=== PATIENT | male | born 1985 | race Caucasian/White ===

== ENCOUNTER 2016-12-05 14:34 | Emergency (ER) | payer OTHER, BC ==
[~2016-12-05] VITALS: Ht 177.8 cm; Wt 100.0 kg
[2016-12-05] MEDS ORDERED: KETOROLAC 60 MG/2 ML VIAL (J1885) IM ONE (16:45)
[2016-12-05] MEDS ORDERED: IBUP-1022 PO (17:01)
[2016-12-05] MEDS ORDERED: CYCL10TA PO (17:01)
[2016-12-05 17:47] VITALS: BP 148/89
== END 2016-12-05 17:49 | disposition home or self-care (01) ==
LOC: M ED 14:34
DX: S39.012A Strain of muscle, fascia and tendon of lower back, initial encounter (principal); X50.9XXA Other and unspecified overexertion or strenuous movements or postures, initial encounter; Y92.59 Other trade areas as the place of occurrence of the external cause; Y93.89 Activity, other specified; Y99.0 Civilian activity done for income or pay; F17.210 Nicotine dependence, cigarettes, uncomplicated
CPT/HCPCS: 96372; 99282; J1885

== ENCOUNTER 2017-04-27 11:09 | Emergency (ER) | payer BC, OTHER ==
[2017-04-27] MEDS: KETOROLAC 30 MG/ML VIAL (J1885) IV (13:01)
[2017-04-27] MEDS: MORPHINE 4 MG/ML 1ML VIAL IV (13:02)
[2017-04-27] MEDS: GASTROGRAFIN SOLUTION 30ML PO ×2 (13:17→13:36)
[2017-04-27 13:20] LABS: BASO # 0.1 10^3/uL (0.0-0.2); BASO % 0.4 % (0.0-1.0); EOS # 0.1 10^3/uL (0.0-0.50); EOS % 0.6 % (0.0-3.0); HEMATOCRIT 42.5 % (42.0-52.0); HEMOGLOBIN 14.9 g/dl (14.0-18.0); IMMATURE GRANULOCYTE % 0.3 % (0-0); LYMPH # 1.3 10^3/uL (1.5-4.5); LYMPH % 8.9 % (24.0-44.0); MEAN CORPUSCULAR HEMOGLOBIN 33.6 pg (27.0-33.0); MEAN CORPUSCULAR HGB CONC 35.1 g/dl (32.0-36.5); MEAN CORPUSCULAR VOLUME 95.7 fl (80.0-96.0); MONO # 0.7 10^3/uL (0.0-0.8); MONO % 4.8 % (0.0-5.0); NEUTROPHILS # 12.1 10^3/uL (1.8-7.7); PLATELET COUNT, AUTOMATED 173 10^3/uL (150-450); RED BLOOD COUNT 4.44 10^6/uL (4.30-6.10); RED CELL DISTRIBUTION WIDTH 11.7 % (11.5-14.5); WHITE BLOOD COUNT 14.2 10^3/uL (4.0-10.0)
[2017-04-27 13:25] LABS: APPEARANCE, URINE HAZY (CLEAR); BACTERIA, URINE AUTO NEGATIVE (NEGATIVE); BILIRUBIN, URINE AUTO NEGATIVE (NEGATIVE); BLOOD, URINE BLOOD NEGATIVE (NEGATIVE); COLOR, URINE YELLOW (YELLOW); GLUCOSE, URINE (UA) AUTO NEGATIVE (NEGATIVE); KETONE, URINE AUTO NEGATIVE (NEGATIVE); LEUKOCYTE ESTERASE, URINE AUTO NEGATIVE (NEGATIVE); MUCUS, URINE SMALL (NEGATIVE); NITRITE, URINE AUTO NEGATIVE (NEGATIVE); PROTEIN, URINE AUTO NEGATIVE (NEGATIVE); RBC, URINE AUTO 5 /HPF (0-3); SPECIFIC GRAVITY URINE AUTO 1.023 (1.002-1.035); SQUAMOUS EPITHELIAL CELL UR AU 0 /HPF (0-6); UROBILINOGEN, URINE AUTO 0.2 mg/dL (0.0-2.0); WBC, URINE AUTO 1 /HPF (0-3)
[2017-04-27 13:43] LABS: ALBUMIN 4.2 GM/DL (3.2-5.2); ALKALINE PHOSPHATASE 68 U/L (45-117); ALT/SGPT 40 U/L (12-78); AMYLASE 51 U/L (25-115); ANION GAP 9 MEQ/L (8-16); AST/SGOT 25 U/L (7-37); BILIRUBIN,TOTAL 0.4 MG/DL (0.2-1.0); BLOOD UREA NITROGEN 21 MG/DL (7-18); C REACTIVE PROTEIN QUANTITATIV < 0.30 MG/DL (0.00-0.30); CALCIUM LEVEL 8.9 MG/DL (8.5-10.1); CARBON DIOXIDE LEVEL 26 MEQ/L (21-32); CHLORIDE LEVEL 104 MEQ/L (98-107); GLOMERULAR FILTRATION RATE > 60.0 (>60); GLUCOSE, FASTING 101 MG/DL (70-100); LIPASE 102 U/L (73-393); SODIUM LEVEL 139 MEQ/L (136-145); TOTAL PROTEIN 7.2 GM/DL (6.4-8.2)
[2017-04-27 13:46] LABS: LACTIC ACID SEPSIS PROTOCOL 1.1 MMOL/L (0.4-2.0)
[2017-04-27] MEDS: HYDROmorphone HCL 1 MG/ML SYRINGE (J1170) IV (13:56)
[2017-04-27] MEDS ORDERED: ISOVUE-370 76% 100ML VIAL (Q9967) As Ordered (14:13)
== END 2017-04-27 15:12 | disposition home or self-care (01) ==
LOC: M ED 11:09
DX: K81.0 Acute cholecystitis (principal); Z87.442 Personal history of urinary calculi; K25.9 Gastric ulcer, unspecified as acute or chronic, without hemorrhage or perforation; F17.200 Nicotine dependence, unspecified, uncomplicated
CPT/HCPCS: J1170

== ENCOUNTER 2017-06-09 06:38 | Day surgery (SDC) | payer BC ==
[2017-06-09] MEDS ORDERED: PROPOFOL 200 MG/20 ML VIAL As Ordered (06:41)
[2017-06-09] MEDS ORDERED: dexameTHASONE 4 MG/ML 1ML VIAL (J1100) As Ordered (06:42)
[2017-06-09] MEDS ORDERED: ONDANSETRON 4MG/2ML VIAL (J2405) As Ordered (06:42)
[2017-06-09] MEDS ORDERED: ROCURONIUM BROMIDE 50 MG/5 ML VIAL As Ordered (06:42)
[2017-06-09] MEDS ORDERED: NEOSTIGMINE 10 MG/10 ML VIAL (J2710) As Ordered (06:44)
[2017-06-09] MEDS ORDERED: GLYCOPYRROLATE INJ 0.2 MG/ML 2 ML VIAL As Ordered (06:45)
[2017-06-09] MEDS: LR 1,000 ML IV (07:01)
[2017-06-09] MEDS ORDERED: fentaNYL 250 MCG/5 ML INJECTION (J3010) As Ordered (07:01)
[2017-06-09] MEDS ORDERED: MIDAZOLAM INJ 2 MG/2 ML VIAL (J2250) As Ordered (07:03)
[2017-06-09] MEDS: AMPICILLIN SOD/SULBACTAM SOD 3 GM in D5W MINI-BAG PLUS 100 ML IV (07:31)
[2017-06-09] MEDS: BUPIVACAINE HCL 0.25% 30 ML VIAL As Ordered (08:51)
[2017-06-09] MEDS: LIDOCAINE 1% SDV INJ 30 ML VIAL As Ordered (08:51)
[2017-06-09] MEDS ORDERED: MEPERIDINE INJ 25 MG/ML VIAL (J2175) As Ordered (09:11)
[2017-06-09] MEDS: MEPERIDINE INJ 25 MG/ML VIAL (J2175) IV ×2 (09:14→09:20)
[2017-06-09] MEDS ORDERED: METOCLOPRAMIDE INJ 10MG/2ML VIAL (J2765) IV (09:30)
[2017-06-09] MEDS ORDERED: LR 1,000 ML IV (09:30)
[2017-06-09] MEDS ORDERED: ONDANSETRON 4MG/2ML VIAL (J2405) IV ×2 (09:30)
[2017-06-09] MEDS ORDERED: KETOROLAC 30 MG/ML VIAL (J1885) IV (09:30)
[2017-06-09] MEDS ORDERED: fentaNYL 100 MCG/2 ML INJECTION (J3010) IV (09:30)
[2017-06-09] MEDS ORDERED: NORCO, ANEXSIA 5/325MG TABLET (HYDROcodone/ACETAMINOPHEN) PO ×2 (09:30)
[2017-06-09] MEDS: PERCOCET 5MG/325MG TAB PO ×2 (09:32→09:58)
== END 2017-06-09 11:06 | disposition home or self-care (01) ==
LOC: M SDC 06:38
DX: K80.18 Calculus of gallbladder with other cholecystitis without obstruction (principal); I49.8 Other specified cardiac arrhythmias; K21.9 Gastro-esophageal reflux disease without esophagitis; F32.9 Major depressive disorder, single episode, unspecified; F17.210 Nicotine dependence, cigarettes, uncomplicated; Z79.899 Other long term (current) drug therapy
CPT/HCPCS: 47562

== ENCOUNTER → 2018-06-12 | Outpatient (REF) | payer BC ==
[~2018-06-12] MED LIST: CYCL10TA PO; HYDR-3713; IBUP-1022 PO; NORCOTAB PO; ZOFR4TAB14 PO
== END ==
LOC: M LAB REF 11:23
PROVIDERS: ATTEND Physician Assistant
DX: J02.9 Acute pharyngitis, unspecified (principal)

== ENCOUNTER 2019-02-12 12:42 | Emergency (ER) | payer BC ==
[~2019-02-12] VITALS: Ht 177.8 cm; Wt 100.0 kg
[~2019-02-12 12:42] MED LIST changes: +HYDR-3715 PO; -NORCOTAB PO
[2019-02-12] MEDS ORDERED: FLUORESCEIN OPHTH 1 MG STRIP OD ONE (14:30)
[2019-02-12] MEDS ORDERED: TETRACAINE 0.5% OPHTH SOLN 4ML OD ONE (14:30)
[2019-02-12] MEDS ORDERED: IBUPROFEN 800 MG TAB PO ONE (15:00)
[2019-02-12] MEDS ORDERED: ERYTHROMYCIN OPHTH OINT OD ONE (15:00)
[2019-02-12 15:07] VITALS: BP 143/91
== END 2019-02-12 15:08 | disposition home or self-care (01) ==
LOC: M ED 12:42
DX: T15.01XA Foreign body in cornea, right eye, initial encounter (principal)

== ENCOUNTER → 2019-04-12 | Outpatient (CLI) | payer BC ==
--- NOTE | 2019-04-16 00:09 | ECWPNPC ---
PATIENT NAME: KIRK WILSON : 1985 GENDER: MALE VISIT DATE: 04/12/2019 DISCHARGE DATE: 04/12/19 1134 VISIT LOCKED DATE TIME: PHYSICIAN: LIVIA MORAN RESOURCE: LIVIA MORAN REASON FOR APPOINTMENT 1. LUMBAR BULGING DISC/?INJECTION HISTORY OF PRESENT ILLNESS PAIN SCREENING: PATIENT HAS A COMPLAINT OF ACUTE OR CHRONIC PAIN :YES 33-YEAR-OLD MALE WITH A HISTORY OF CHRONIC NECK AND BACK PAIN IN TODAY FOR INITIAL PAIN CONSULT. HE RATES PAIN CURRENTLY AT AN 8 OUT OF 10 AND DESCRIBES IT ACHING, SHARP, BURNING, STABBING, SORE, SHOOTING, AND TENDER. HE ADMITS TO BEING ON NSAIDS AND MUSCLE RELAXERS IN THE PAST AND STATES THESE ARE INEFFECTIVE IN RELIEVING HIS PAIN SYMPTOMS. HE DOES ADMIT TO LUMBAR AND CERVICAL RADICULAR SYMPTOMS. WHEN ASKED SHE DENIES HISTORY OF TRAUMA. FALL RISK SCREENING: SCREENING :NO FALLS REPORTED IN THE LAST YEAR CURRENT MEDICATIONS NOT-TAKING PERCOCET 5-325 MG TABLET 1 TABLET NEEDED ORALLY EVERY 4-6 HOURS NOT-TAKING CLINDAMYCIN HCL 75 MG CAPSULE DIRECTED ORALLY NOT-TAKING FLEXERIL 10 MG TABLET 1 TABLET ORALLY THREE TIMES A DAY NOT-TAKING NAPROXEN 500 MG TABLET 1 TABLET WITH FOOD OR MILK NEEDED ORALLY EVERY 12 HRS NOT-TAKING NABUMETONE 750 MG TABLET 1 TABLET ORALLY TWICE A DAY MEDICATION LIST REVIEWED AND RECONCILED WITH THE PATIENT PAST MEDICAL HISTORY KIDNEY STONE BACK PAIN ALLERGIES N.K.D.A. SURGICAL HISTORY SURGICAL REPAIR OF FOOT FX 1999 [facility]- DR. RUGGIERO- GALLBLADDER REMOVED 06/09/17 FAMILY HISTORY FATHER: UNKNOWN 60 YRS MOTHER: ALIVE 65 YRS, MS, BREAST CANCER SIBLINGS: ALIVE SON(S): ALIVE 9 YRS DAUGHTER(S): ALIVE 8 YRS PATERNAL GRAND FATHER: UNKNOWN PATERNAL GRAND MOTHER: UNKNOWN MATERNAL GRAND FATHER: 70 YRS, DIAGNOSED WITH OTHER MALIGNANT NEOPLASM OF UNSPECIFIED SITE MATERNAL GRAND MOTHER: 90 YRS, OTHER MALIGNANT NEOPLASM OF UNSPECIFIED SITE 1 BROTHER(S) , 3 SISTER(S) . 1 SON(S) , 1 DAUGHTER(S) - HEALTHY. ALL HALF [id number] - 1 SISTER AGE 30 WITH RECURRENT ? CERVICAL CANCER. HYSTERECTOMY1 SISITER HEART DEFECT AT , RESLOVED WITH SX.3BROTHERS- NO KNOWN MEDICAL ISSUESFATHER- ALIVE, AGE 60,UNKOWN HX- BI-KNEE REPLACEMENTS, CT SX BOTH WRIST, OBESITY. MOTHER- ALIVE AGE 65- MS, BREAST CANCER X2. PANCREAS, GALL BLADDER REMOVED. 1 SON AGE 9- NO KNOWN MEDICAL ISSUES- (LIVES WITH SELF-FATHER)1 DAUGHTER AGE8- MULTIPLE MEDICAL ISSUES, INTESTINAL AND BOWELS ISSUES- INCONT OF BLADDER AND BOWELS, LIVES WITH MOTHER. TUBES IN EARS. PATERNAL GRANDPARENTS- UNKNOWN FATHER WAS ADOPTEDMATERNAL GRANDPARENTS- GRANDFATHER AGE 70- DECEASEAD- LUNG CANCERMATERNAL GRANDMOTHER AGE 90- - PANCREATIC CANCER. SOCIAL HISTORY GENERAL: TOBACCO USE ARE YOU A:CURRENT SMOKER ARE YOU INTERESTED IN QUITTING?THINKING ABOUT QUITTING PREVIOUS QUIT ATTEMPTS?YES, MORE THAN 6 MONTHS AGO. COUNSELED THE PATIENT ON SMOKING CESSATION, EDUCATION [id number]/28/2019 HOW MANY CIGARETTES A DAY DO YOU SMOKE?11-20 HOW SOON AFTER YOU WAKE UP DO YOU SMOKE YOUR FIRST CIGARETTE?31-60 MIN HOW OFTEN DO YOU SMOKE CIGARETTES?EVERY DAY PATIENT COUNSELED ON THE DANGERS OF TOBACCO USE AND URGED TO QUIT:04/12/2019 HIV / HEP-C SCREENING HIV TEST OFFERED TO PATIENT:YES DATE OFFERED:06/15/2017 TEST ACCEPTED:NO REASON:PATIENT DECLINED BROCHURE PROVIDED TO PATIENTYES OTHERS AT HOME: GIRLFRIEND, HIS SON,. HOUSING: RENTS HOUSE. EDUCATION LEVEL OF EDUCATION: COMPLETED 9TH GRADE DIET: REGULAR. LANGUAGE TAJIK. DOMESTIC VIOLENCE NONE. NEW PATIENT PAIN DIARY PATIENT DESCRIBES PAIN :ACHING, BURNING, HAVE IT ALL THE TIME, SHARP, STABBING, SORE, SHOOTING FROM 0-10, WHAT LEVEL IS YOUR PAIN TODAY?8 PRECIPITATING FACTORS STANDING, SITTING, BENDING MOVEMENTS, PROLONGED PERIOD ON FEET ALLEVIATING FACTORS NOTHING AT THIS TIME, MEDICATIONS WILL DULL PAIN, NOTHING RESOLVES PAIN IMPACT ON FUNCTION DOES NOT DAMPER DAILY ACTIVITY, PT CONTINUES TO TOLERATE INCREASED PAIN ANY NEW PROBLEMS WITH MEDICINES OR NEW ALLERGIESNO ANY NEW PATTERNS OF PAIN OR NUMBNESS?NO MOVES ACROSS BACK, UP OR DOWN, RADIATES DOWN LEGS AT TIMES ANY CHANGE IN YOUR MEDICAL CONDITION?NO HAVE YOU FALLEN IN THE LAST 6 MONTHS?NO DO YOU USE ANY TYPE OF TOBACCO (SMOKE, SMOKELESS, CHEW, ETC.)YES ARE YOU ABUSED, NEGLECTED, OR IN AN UNSAFE ENVIRONMENT?NO DO YOU HAVE THOUGHTS OF HURTING YOURSELF OR SOMEONE ELSE?NO DO YOU HAVE ANY OTHER QUESTIONS OR CONCERNS?NO RECREATIONAL DRUG USE [facility]. EXERCISE: NO REGULAR EXERCISE. LEARNING BARRIERS / SPECIAL NEEDS HEARING IMPAIRED?NO VISION IMPAIRED?NO COGNITIVELY IMPAIRED?NO READINESS TO LEARN?YES LEARNING PREFERENCES?NO LEARNING CAPABILITIES PRESENT?YES PAIN CLINIC PFS, CLERGY, PUBLIC HEALTH REFERRALS WAS THE PROVIDER NOTIFIED OF ANY PERTINENT INFO?YES HAS THE PATIENT BEEN EDUCATED REGARDING HIS/HER PLAN OF CARE?YES HAS THE PATIENT BEEN EDUCATED REGARDING PAIN, THE RISK FOR PAIN, THE IMPORTANCE OF EFFECTIVE PAIN MANAGEMENT, AND THE PAIN ASSESSMENT PROCESS?YES LATEX QUESTIONNAIRE LATEX ALLERGY : HAVE YOU EVER DEVELOPED ANY TYPE OF REACTION AFTER HANDLING LATEX PRODUCTS SUCH RUBBER GLOVES, CONDOMS, DIAPHRAGMS, BALLOONS, SOCKS, OR UNDERWEAR?NO LATEX ALLERGY : HAVE YOU EVER DEVELOPED ANY TYPE OF REACTION DURING OR AFTER DENTAL APPOINTMENT, VAGINAL/RECTAL EXAMINATION, SURGICAL PROCEDURE, OR ANY OTHER EXPOSURE?NO DATE ASKED : 06/07/2018 LATEX RISK : HAVE YOU EVER HAD ANY DIFFICULTY BREATHING OR HIVES AFTER EATING OR HANDLING ANY FRUITS, OR VEGETABLES; SUCH KIWI, BANANAS, STONE FRUITS, OR CHESTNUTSNO LATEX RISK : DO YOU HAVE A PREVIOUS PERSONAL HISTORY OF MORE THAN NINE SURGERIES, SPINA BIFIDA, OR REPEATED CATHERIZATIONS? NO LATEX RISK : ARE YOU FREQUENTLY EXPOSED TO LATEX PRODUCTS IN YOUR OCCUPATION?NO CAFFEINE CAFFEINE USE?YES 2-3 ENERGY DRINKS DAILY, 1-2 COFFEE DAILY, 2LITER SODA NIGHTLY ADVANCE DIRECTIVE ADVANCE DIRECTIVE DISCUSSED WITH PATIENT:YES PT STATES THAT HE DOES NOT HAVE HCP AT THIS TIME AND DECLINES ASSISTANCE WITH PAPERWORK. DS SIKH NO DENOMINATIONAL BELIEFS THAT WOULD IMPACT HEALTH CARE. MARITAL STATUS: SINGLE. 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 SEXUAL HX HAD SEX IN THE LAST 12 MONTHS (VAGINAL, ORAL, OR ANAL)?YES WITHWOMEN ONLY PREVENTION STRATEGIES DISCUSSED:OTHER USE PROTECTION?NO HAVE YOU EVER HAD AN STD?NO 2019-04-12 REVIEWED WITH PATIENT DS. HOSPITALIZATION/MAJOR DIAGNOSTIC PROCEDURE [facility] IN [place]- KIDNEY FAILURE 2011- 1WEEK REVIEW OF SYSTEMS REVIEWED BY: PROVIDER: RIGOBERTO LOCKE-C . CONSTITUTIONAL: ANY CHANGE IN YOUR MEDICAL CONDITION? NO . CHILLS NO . FEVER NO . INFECTION: DO YOU HAVE NEW INFECTIONS? NO . DO YOU HAVE HISTORY OF MRSA? NO . MUSCULOSKELETAL: ANY NEW PATTERNS OF PAIN OR NUMBNESS? NO . SYTEMIC LUPUS NO . GASTROENTEROLOGY: ANY NEW CHANGE IN BOWEL CONTROL? NO . BARRETTS ESOPHAGUS NO . CIRRHOSIS NO . HEPATITIS NO . LIVER FAILURE NO . ACID REFLUX NO . UNEXPLAINED WEIGHT LOSS NO . GENITOURINARY: ANY NEW CHANGE IN BLADDER CONTROL? NO . IS THERE A CHANCE YOU COULD BE ? NO . HEMATOLOGY/LYMPH: DO YOU TAKE ANY BLOOD THINNERS? (FOR EXAMPLE- COUMADIN, PLAVIX, AGGRENOX, PLATEL, PRADAXA, OR XARELTO) NO . WHEN WAS YOUR LAST DOSE? DATE: TIME: . LOW PLATELET COUNT NO . SICKLE CELL DISEASE NO . VON WILLIEBRANDS NO . FACTOR V LEIDEN NO . THALLASEMIA NO . ANEMIA NO . EASY BRUISING NO . NEUROLOGY: HAVE YOU FALLEN IN THE PAST 12 MONTHS? NO . ANY NEW EXTREMITY NUMBNESS OR WEAKNESS? NO . HEAD INJURY NO . DEMENTIA NO . CEREBRAL PALSY NO . MULTIPLE SCLEROSIS NO . DIZZINESS NO . HEADACHE NO . STROKES NO . VERTIGO NO . CARDIOLOGY: DO YOU HAVE A PACEMAKER OR DEFIBRILLATOR? NO . ANGINA NO . HEART ATTACK NO . HEART SURGERY NO . CONGESTIVE HEART FAILURE/FLUID OVERLOAD NO . CHEST PAIN NO . HIGH BLOOD PRESSURE NO . IRREGULAR HEART BEAT NO . RESPIRATORY: HAVE YOU BEEN SICK IN THE PAST WEEK? NO . FEVER NO . FLU LIKE SYMPTOMS? NO . CPAP NO . BYPAP NO . ASTHMA NO . EMPHYSEMA NO . CHRONIC LUNG DISEASES NO . SHORTNESS OF BREATH ON EXERTION NO . COUGH NO . SNORING NO . INTEGUMENTARY: DO YOU HAVE ANY RASHES OR OPEN SORES? YES, CYST ON TAILBONE, BEEN THERE FOR YEARS . ALLERGIC/IMMUNO: ARE YOU ALLERGIC TO IV DYE? NO . ANY NEW ALLERGIES? NO . PSYCHIATRIC: DO YOU HAVE THOUGHTS OF HURTING YOURSELF OR SOMEONE ELSE? NO . ARE YOU ABUSED, NEGLECTED, OR IN AN UNSAFE ENVIRONMENT? NO . ENDOCRINOLOGY: ARE YOU DIABETIC? NO . THYROID DISORDER NO . OTHER: DO YOU NEED ANY PRESCRIPTIONS? NO . IF YES, PLEASE LIST: ____ . ANY NEW PROBLEMS WITH YOUR MEDICATIONS? NO . WHEN DID YOU LAST EAT? ____ . WHEN DID YOU LAST DRINK? ____ . WHAT DID YOU LAST DRINK? ____ . NAME OF PERSON DRIVING YOU HOME? ____ . DO YOU HAVE ANY OTHER QUESTIONS OR CONCERNS NO . VITAL SIGNS WT 244.2 LBS, HT 71 IN, BMI 34.06 INDEX, BP 142/93 MM HG, HR 68 /MIN, RR 18 /MIN, TEMP 97.5 F, OXYGEN SAT % 98, SAFE IN ENV? (Y/N) Y, REVIEWED BY: DS. EXAMINATION GENERAL EXAMINATION: GENERALNO ACUTE DISTRESS, WELL NOURISHED AND HYDRATED. PSYCHAPPROPRIATE MOOD AND AFFECT . NECK:POINT TENDER C5-C6, SURROUNDING SKIN SHOWS NO ERYTHEMA, ECCHYMOSIS, INCREASED WARMTH, AND/OR SKIN ERUPTIONS NOTED. PATIENT DOES ENDORSE INCREASED PAIN WHEN ASKED TO LIFT ARMS AGAINST RESISTANCE. . LUNGS:CLEAR TO AUSCULTATION BILATERALLY, NO WHEEZES, RHONCHI, RALES. HEART:NO MURMURS, REGULAR RATE AND RHYTHM. BACK:POINT TENDER ALONG L4-L5 L5-S1, SURROUNDING SKIN SHOWS NO ERYTHEMA, ECCHYMOSIS, INCREASED WARMTH, AND/OR SKIN ERUPTIONS NOTED. POSITIVE MODIFIED SLR ON THE RIGHT SIDE . MUSCULOSKELETAL:EQUAL STRENGTH OF THE LOWER EXTREMITIES BILATERALLY . ASSESSMENTS CERVICALGIA - M54.2 (PRIMARY) LOW BACK PAIN - M54.5 TREATMENT CERVICALGIA START GABAPENTIN CAPSULE, 100 MG, 1 CAPSULE, ORALLY, THREE X DAILY X 3 DAYS, 3 DAYS, 9 START GABAPENTIN CAPSULE, 300 MG, 1 CAPSULE, ORALLY, ONCE A DAY, 30 DAY(S), 90 [facility] MRI C SPINE W/O FOLL BY [id number] NOTES: REVIEWED AND DISCUSSED TREATMENT PLAN WITH PATIENT, DISCUSSED MEDICATION SCHEDULE, PT ACKNOWLEDGED UNDERSTANDING.DS . CLINICAL NOTES: 33-YEAR-OLD MALE IN FOR INITIAL PAIN CONSULT. GIVEN PRESENTING SYMPTOMS AND RESULTS OF PHYSICAL EXAMINATION RECOMMENDED CERVICAL AND LUMBAR MRI, AND STARTING GABAPENTIN 100 MG 3 TIMES A DAY X3 DAYS THEN INCREASING TO 300 MG 3 TIMES A DAY. WE WILL FOLLOW-UP STATUS POST IMAGING. PATIENT HAS EXPRESSED UNDERSTANDING OF AND WAS IN AGREEMENT WITH TREATMENT PLAN. GIVEN TIME TO ASK QUESTIONS AND EXPRESS CONCERNS. LOW BACK PAIN [facility] MRI LUMBAR W/O CONTRAST (CPT [id number] PREVENTIVE MEDICINE PAIN CLINIC TEACHING: THE PATIENT HAS BEEN EDUCATED REGARDING PAIN, THE RISK FOR PAIN, THE IMPORTANCE OF EFFECTIVE PAIN MANAGEMENT, AND THE PAIN ASSESSMENT PROCESS. : REVIEWED AND DISCUSSED WRITTEN MATERIAL ON GABAPENTIN, REVIEWED DOSING INSTRUCTIONS, EDUCATED PT REGARDING MRI ORDER, PT ACKNOWLEDGED UNDERSTANING. DSD PROCEDURE CODES FA211 ESTABILISHED PATIENT [facility] FACILITY CHARGE DISPOSITION & COMMUNICATION FOLLOW UP STATUS POST IMAGING (REASON: CERVICAL AND LUMBAR MRI) ELECTRONICALLY SIGNED BY CORNELIA AL ON 04/15/2019 AT 09:51 AM EST DISCLAIMER : THIS IS A VISIT SUMMARY EXTRACTED FROM THE [employer] CHART. IT IS NOT A COPY OF THE [employer] PROGRESS NOTE. MTDD
== END ==
LOC: M PAIN 09:30
PROVIDERS: ATTEND Family Medicine
DX: M54.2 Cervicalgia (principal); M54.5 Low back pain

== ENCOUNTER → 2019-04-27 | Outpatient (CLI) | payer BC ==
--- NOTE | 2019-04-27 09:30 | REP ---
Calvarium, six views for MRI screening: There is a tiny metallic density in the right frontal scalp soft tissues, not within the orbit and not within the cranial vault. The the patient is cleared for the MRI examination. 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 Electronically Signed by Alex Caraballo MD 04/27/2019 09:22 A
--- NOTE | 2019-04-28 08:29 | REPVR ---
PROCEDURE INFORMATION: Exam: MR Cervical Spine Without Contrast Exam date and time: 04/27/2019 10:08 AM Age: 34 years old Clinical indication: Pain; Cervicalgia; Additional info: Lower back, cervicalgia TECHNIQUE: Imaging protocol: Multiplanar magnetic resonance images of the cervical spine without contrast. COMPARISON: No relevant prior studies available. FINDINGS: Vertebrae: No fracture or subluxation. There is mild degenerative disc disease and facet arthrosis throughout the cervical spine. Spinal cord: Normal signal. No cord compression. C2-C3: No significant disc disease. No significant spinal stenosis. C3-C4: Minimal posterior disco-osteophytic bulge with effacement of the anterior thecal sac. Minimal narrowing of the left neural foramen. C4-C5: Mild posterior diso-osteophytic protrusion, asymmetric to the right effacing the right anterior thecal sac. Mild right neural foraminal narrowing. C5-C6: Mild disc space height loss. Posterior broad-based mild disco-osteophytic protrusion effacing the anterior thecal sac. C6-C7: Mild posterior disco-osteophytic protrusion with effacement of the anterior thecal sac. Minimal narrowing of the left neural foramen. C7-T1: No significant disc disease. No significant spinal stenosis. Vertebral arteries: Expected flow voids in the vertebral arteries. Soft tissues: Unremarkable. IMPRESSION: Mild degenerative spondylosis of the cervical spine. Electronically signed by: Sj Cuevas On 04/28/2019 08:31:21 AM
--- NOTE | 2019-04-28 08:34 | REPVR ---
PROCEDURE INFORMATION: Exam: MR Lumbar Spine Without Contrast. Exam date and time: 04/27/2019 10:08 AM Age: 34 years old Clinical indication: Low back pain; Additional info: Lower back, cervicalgia TECHNIQUE: Imaging protocol: Multiplanar magnetic resonance images of the lumbar spine without intravenous contrast. COMPARISON: No relevant prior studies available. FINDINGS: Vertebrae: Unremarkable. Spinal cord: Normal signal. No cord compression. The conus terminates at the level of the L2 superior endplate. L1-L2: No significant disc disease. No significant spinal canal stenosis. No neural foraminal stenosis. L2-L3: Mild disc space height loss and decreased disc signal. Minimal posterior broad-based disc bulge and mild bilateral facet hypertrophy. No focal disc protrusion, nerve root impingement or spinal stenosis. L3-L4: Disc space height loss, decreased disc signal and mild posterior broad-based disc bulge. Bilateral facet hypertrophy. No focal disc protrusion, nerve root impingement or spinal stenosis. L4-L5: Disc space height loss, decreased disc signal and posterior broad-based disc protrusion. Minimal retrolisthesis of L4. Bilateral facet hypertrophy. No focal disc protrusion, nerve root impingement or spinal stenosis. L5-S1: Modic type 1 and type 2 endplate signal changes. L5 and S1 Schmorl's nodes. Disc space height loss, decreased disc signal and posterior broad-based disc protrusion. Bilateral facet hypertrophy. No focal disc protrusion, nerve root impingement or spinal stenosis. Mild bilateral neural foraminal narrowing. Soft tissues: Unremarkable. Other findings: Degenerative disc disease and facet arthrosis throughout the lumbar spine. IMPRESSION: Degenerative spondylosis of the lumbar spine. Electronically signed by: Sj Cuevas On 04/28/2019 08:36:09 AM
== END ==
LOC: M RAD 08:33
PROVIDERS: ATTEND Family Medicine
DX: M54.5 Low back pain (principal); M54.2 Cervicalgia

== ENCOUNTER → 2019-05-08 | Outpatient (CLI) | payer BC ==
--- NOTE | 2019-05-10 02:55 | ECWPNPC ---
PATIENT NAME: KIRK WILSON : 1985 GENDER: MALE VISIT DATE: 05/08/2019 DISCHARGE DATE: 05/08/19 1018 VISIT LOCKED DATE TIME: PHYSICIAN: LIVIA MORAN RESOURCE: LIVIA MORAN REASON FOR APPOINTMENT 1. REVIEW MRI HISTORY OF PRESENT ILLNESS HISTORY OF PRESENT ILLNESS: PAIN THE PATIENT DESCRIBES THE PAIN... 34 OLD MALE IN FOR CHRONIC PAIN FOLLOW-UP AND TO REVIEW MRI. HE RATES HIS PAIN CURRENTLY AT A 7 OUT OF 10 AND DESCRIBES IT ACHING, SHARP, BURNING, STABBING, SORE, SHOOTING, AND TENDER. FALL RISK SCREENING: SCREENING :NO FALLS REPORTED IN THE LAST YEAR CURRENT MEDICATIONS TAKING GABAPENTIN 300 MG CAPSULE 1 CAPSULE ORALLY TID NOT-TAKING PERCOCET 5-325 MG TABLET 1 TABLET NEEDED ORALLY EVERY 4-6 HOURS NOT-TAKING CLINDAMYCIN HCL 75 MG CAPSULE DIRECTED ORALLY NOT-TAKING FLEXERIL 10 MG TABLET 1 TABLET ORALLY THREE TIMES A DAY NOT-TAKING NAPROXEN 500 MG TABLET 1 TABLET WITH FOOD OR MILK NEEDED ORALLY EVERY 12 HRS NOT-TAKING NABUMETONE 750 MG TABLET 1 TABLET ORALLY TWICE A DAY NOT-TAKING GABAPENTIN 100 MG CAPSULE 1 CAPSULE ORALLY THREE X DAILY X 3 DAYS MEDICATION LIST REVIEWED AND RECONCILED WITH THE PATIENT PAST MEDICAL HISTORY KIDNEY STONE BACK PAIN ALLERGIES N.K.D.A. SURGICAL HISTORY SURGICAL REPAIR OF FOOT FX [facility]- DR. RUGGIERO- GALLBLADDER REMOVED 06/09/17 FAMILY HISTORY FATHER: UNKNOWN 60 YRS MOTHER: ALIVE 65 YRS, MS, BREAST CANCER SIBLINGS: ALIVE SON(S): ALIVE 9 YRS DAUGHTER(S): ALIVE 8 YRS PATERNAL GRAND FATHER: UNKNOWN PATERNAL GRAND MOTHER: UNKNOWN MATERNAL GRAND FATHER: 70 YRS, DIAGNOSED WITH OTHER MALIGNANT NEOPLASM OF UNSPECIFIED SITE MATERNAL GRAND MOTHER: 90 YRS, OTHER MALIGNANT NEOPLASM OF UNSPECIFIED SITE 1 BROTHER(S) , 3 SISTER(S) . 1 SON(S) , 1 DAUGHTER(S) - HEALTHY. ALL HALF [id number] - 1 SISTER AGE 30 WITH RECURRENT ? CERVICAL CANCER. HYSTERECTOMY1 SISITER HEART DEFECT AT , RESLOVED WITH SX.3BROTHERS- NO KNOWN MEDICAL ISSUESFATHER- ALIVE, AGE 60,UNKOWN HX- BI-KNEE REPLACEMENTS, CT SX BOTH WRIST, OBESITY. MOTHER- ALIVE AGE 65- MS, BREAST CANCER X2. PANCREAS, GALL BLADDER REMOVED. 1 SON AGE 9- NO KNOWN MEDICAL ISSUES- (LIVES WITH SELF-FATHER)1 DAUGHTER AGE8- MULTIPLE MEDICAL ISSUES, INTESTINAL AND BOWELS ISSUES- INCONT OF BLADDER AND BOWELS, LIVES WITH MOTHER. TUBES IN EARS. PATERNAL GRANDPARENTS- UNKNOWN FATHER WAS ADOPTEDMATERNAL GRANDPARENTS- GRANDFATHER AGE 70- DECEASEAD- LUNG CANCERMATERNAL GRANDMOTHER AGE 90- - PANCREATIC CANCER. SOCIAL HISTORY GENERAL: TOBACCO USE ARE YOU A:CURRENT SMOKER ARE YOU INTERESTED IN QUITTING?THINKING ABOUT QUITTING PREVIOUS QUIT ATTEMPTS?YES, MORE THAN 6 MONTHS AGO. COUNSELED THE PATIENT ON SMOKING CESSATION, EDUCATION [id number]/12/2020 HOW MANY CIGARETTES A DAY DO YOU SMOKE?11-20 HOW SOON AFTER YOU WAKE UP DO YOU SMOKE YOUR FIRST CIGARETTE?31-60 MIN HOW OFTEN DO YOU SMOKE CIGARETTES?EVERY DAY PATIENT COUNSELED ON THE DANGERS OF TOBACCO USE AND URGED TO QUIT:04/12/2019 HIV / HEP-C SCREENING HIV TEST OFFERED TO PATIENT:YES DATE OFFERED:06/15/2017 TEST ACCEPTED:NO REASON:PATIENT DECLINED BROCHURE PROVIDED TO PATIENTYES OTHERS AT HOME: GIRLFRIEND, HIS SON,. HOUSING: RENTS HOUSE. EDUCATION LEVEL OF EDUCATION: COMPLETED 9TH GRADE DIET: REGULAR. LANGUAGE NEPALI. DOMESTIC VIOLENCE NONE. NEW PATIENT PAIN DIARY PATIENT DESCRIBES PAIN :ACHING, BURNING, HAVE IT ALL THE TIME, SHARP, STABBING, SORE, SHOOTING FROM 0-10, WHAT LEVEL IS YOUR PAIN TODAY?8 PRECIPITATING FACTORS STANDING, SITTING, BENDING MOVEMENTS, PROLONGED PERIOD ON FEET ALLEVIATING FACTORS NOTHING AT THIS TIME, MEDICATIONS WILL DULL PAIN, NOTHING RESOLVES PAIN IMPACT ON FUNCTION DOES NOT DAMPER DAILY ACTIVITY, PT CONTINUES TO TOLERATE INCREASED PAIN ANY NEW PROBLEMS WITH MEDICINES OR NEW ALLERGIESNO ANY NEW PATTERNS OF PAIN OR NUMBNESS?NO MOVES ACROSS BACK, UP OR DOWN, RADIATES DOWN LEGS AT TIMES ANY CHANGE IN YOUR MEDICAL CONDITION?NO HAVE YOU FALLEN IN THE LAST 6 MONTHS?NO DO YOU USE ANY TYPE OF TOBACCO (SMOKE, SMOKELESS, CHEW, ETC.)YES ARE YOU ABUSED, NEGLECTED, OR IN AN UNSAFE ENVIRONMENT?NO DO YOU HAVE THOUGHTS OF HURTING YOURSELF OR SOMEONE ELSE?NO DO YOU HAVE ANY OTHER QUESTIONS OR CONCERNS?NO [facility]CREATIONAL DR[facility] EXERCISE: NO REGULAR EXERCISE. LEARNING BARRIERS / SPECIAL NEEDS HEARING IMPAIRED?NO VISION IMPAIRED?NO COGNITIVELY IMPAIRED?NO READINESS TO LEARN?YES LEARNING PREFERENCES?NO LEARNING CAPABILITIES PRESENT?YES PAIN CLINIC PFS, CLERGY, PUBLIC HEALTH REFERRALS WAS THE PROVIDER NOTIFIED OF ANY PERTINENT INFO?YES HAS THE PATIENT BEEN EDUCATED REGARDING HIS/HER PLAN OF CARE?YES HAS THE PATIENT BEEN EDUCATED REGARDING PAIN, THE RISK FOR PAIN, THE IMPORTANCE OF EFFECTIVE PAIN MANAGEMENT, AND THE PAIN ASSESSMENT PROCESS?YES LATEX QUESTIONNAIRE LATEX ALLERGY : HAVE YOU EVER DEVELOPED ANY TYPE OF REACTION AFTER HANDLING LATEX PRODUCTS SUCH RUBBER GLOVES, CONDOMS, DIAPHRAGMS, BALLOONS, SOCKS, OR UNDERWEAR?NO LATEX ALLERGY : HAVE YOU EVER DEVELOPED ANY TYPE OF REACTION DURING OR AFTER DENTAL APPOINTMENT, VAGINAL/RECTAL EXAMINATION, SURGICAL PROCEDURE, OR ANY OTHER EXPOSURE?NO DATE ASKED : 06/07/2018 LATEX RISK : HAVE YOU EVER HAD ANY DIFFICULTY BREATHING OR HIVES AFTER EATING OR HANDLING ANY FRUITS, OR VEGETABLES; SUCH KIWI, BANANAS, STONE FRUITS, OR CHESTNUTSNO LATEX RISK : DO YOU HAVE A PREVIOUS PERSONAL HISTORY OF MORE THAN NINE SURGERIES, SPINA BIFIDA, OR REPEATED CATHERIZATIONS? NO LATEX RISK : ARE YOU FREQUENTLY EXPOSED TO LATEX PRODUCTS IN YOUR OCCUPATION?NO CAFFEINE CAFFEINE USE?YES 2-3 ENERGY DRINKS DAILY, 1-2 COFFEE DAILY, 2LITER SODA NIGHTLY ADVANCE DIRECTIVE ADVANCE DIRECTIVE DISCUSSED WITH PATIENT:YES PT STATES THAT HE DOES NOT HAVE HCP AT THIS TIME AND DECLINES ASSISTANCE WITH PAPERWORK. DS TENRIISM NO TEMPLE BELIEFS THAT WOULD IMPACT HEALTH CARE. MARITAL STATUS: SINGLE. 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 SEXUAL HX HAD SEX IN THE LAST 12 MONTHS (VAGINAL, ORAL, OR ANAL)?YES WITHWOMEN ONLY PREVENTION STRATEGIES DISCUSSED:OTHER USE PROTECTION?NO HAVE YOU EVER HAD AN STD?NO 2019-04-12 REVIEWED WITH PATIENT DS. HOSPITALIZATION/MAJOR [facility]AGNOSTIC [facility]- 1WEEK REVIEW OF SYSTEMS REVIEWED BY: PROVIDER: RIGOBERTO LOCKE-C . CONSTITUTIONAL: ANY CHANGE IN YOUR MEDICAL CONDITION? NO . CHILLS NO . FEVER NO . INFECTION: DO YOU HAVE NEW INFECTIONS? NO . DO YOU HAVE HISTORY OF MRSA? NO . MUSCULOSKELETAL: ANY NEW PATTERNS OF PAIN OR NUMBNESS? YES, ARMS GO NUMB, LBP AND NECK PAIN ARE WORSE . GASTROENTEROLOGY: ANY NEW CHANGE IN BOWEL CONTROL? NO . GENITOURINARY: ANY NEW CHANGE IN BLADDER CONTROL? NO . IS THERE A CHANCE YOU COULD BE ? NO . HEMATOLOGY/LYMPH: DO YOU TAKE ANY BLOOD THINNERS? (FOR EXAMPLE- COUMADIN, PLAVIX, AGGRENOX, PLATEL, PRADAXA, OR XARELTO) NO . WHEN WAS YOUR LAST DOSE? DATE: TIME: . NEUROLOGY: HAVE YOU FALLEN IN THE PAST 12 MONTHS? NO . ANY NEW EXTREMITY NUMBNESS OR WEAKNESS? YES, BILAT ARMS . CARDIOLOGY: DO YOU HAVE A PACEMAKER OR DEFIBRILLATOR? NO . RESPIRATORY: HAVE YOU BEEN SICK IN THE PAST WEEK? NO . FEVER NO . FLU LIKE SYMPTOMS? NO . COUGH NO . INTEGUMENTARY: DO YOU HAVE ANY RASHES OR OPEN SORES? NO . ALLERGIC/IMMUNO: ARE YOU ALLERGIC TO IV DYE? NO . ANY NEW ALLERGIES? NO . PSYCHIATRIC: DO YOU HAVE THOUGHTS OF HURTING YOURSELF OR SOMEONE ELSE? NO . ARE YOU ABUSED, NEGLECTED, OR IN AN UNSAFE ENVIRONMENT? NO . ENDOCRINOLOGY: ARE YOU DIABETIC? NO . OTHER: DO YOU NEED ANY PRESCRIPTIONS? NO . IF YES, PLEASE LIST: ____ . ANY NEW PROBLEMS WITH YOUR MEDICATIONS? NO . WHEN DID YOU LAST EAT? ____ . WHEN DID YOU LAST DRINK? ____ . WHAT DID YOU LAST DRINK? ____ . NAME OF PERSON DRIVING YOU HOME? ____ . DO YOU HAVE ANY OTHER QUESTIONS OR CONCERNS NO . VITAL SIGNS WT 250 LBS, HT 71 IN, BMI 34.86 INDEX, BP 161/89 MM HG, HR 75 /MIN, RR 18 /MIN, TEMP 97.7 F, OXYGEN SAT % 98, SAFE IN ENV? (Y/N) YES, REVIEWED BY: EM. EXAMINATION GENERAL EXAMINATION: GENERALNO ACUTE DISTRESS, WELL NOURISHED AND HYDRATED. PSYCHAPPROPRIATE MOOD AND AFFECT . LUNGS:CLEAR TO AUSCULTATION BILATERALLY, NO WHEEZES, RHONCHI, RALES. HEART:NO MURMURS, REGULAR RATE AND RHYTHM. BACK:POINT TENDER ALONG LUMBAR SPINE, SURROUNDING SKIN SHOWS NO ERYTHEMA, ECCHYMOSIS, INCREASED WARMTH, AND/OR SKIN ERUPTIONS NOTED. . MUSCULOSKELETAL:EQUAL STRENGTH OF THE LOWER EXTREMITIES BILATERALLY . ASSESSMENTS LUMBAR SPONDYLOSIS - M47.816 (PRIMARY) TREATMENT LUMBAR SPONDYLOSIS NOTES: BILATERAL THERAPEUTIC FACET BLOCK L3-L4 L4-L5. CLINICAL NOTES: 34-YEAR-OLD MALE IN FOR CHRONIC PAIN FOLLOW-UP. GIVEN PRESENTING SYMPTOMS AND RESULTS OF PHYSICAL EXAMINATION RECOMMENDED BILATERAL THERAPEUTIC FACET BLOCK L3-L4 L4-L5 WITH POST PROCEDURAL FOLLOW-UP. PATIENT HAS EXPRESSED UNDERSTANDING OF AND WAS IN AGREEMENT WITH TREATMENT PLAN. GIVEN TIME TO ASK QUESTIONS AND EXPRESS CONCERNS. PROCEDURE CODES FA211 ESTABILISHED PATIENT [facility] FACILITY CHARGE DISPOSITION & COMMUNICATION FOLLOW UP POSTPROCEDURE (REASON: BILATERAL THERAPEUTIC FACET BLOCK L3-L4 L4-L5) ELECTRONICALLY SIGNED BY CORNELIA AL ON 05/09/2019 AT 08:19 AM EST DISCLAIMER : THIS IS A VISIT SUMMARY EXTRACTED FROM THE [facility] CHART. IT IS NOT A COPY OF THE [employer] PROGRESS NOTE. DARIN
== END ==
LOC: M PAIN 09:30
PROVIDERS: ATTEND Family Medicine
DX: M47.816 Spondylosis without myelopathy or radiculopathy, lumbar region (principal); G89.29 Other chronic pain; F17.210 Nicotine dependence, cigarettes, uncomplicated; Z79.899 Other long term (current) drug therapy

== ENCOUNTER → 2019-06-13 | Outpatient (CLI) | payer BC ==
[~2019-06-13] MED LIST changes: +BUPIVACAINE HCL 0.25% 30 ML VIAL As Ordered ONE; +ISOVUE-M 300 61% 15ML VIAL (Q9967) As Ordered ONE; +LIDOCAINE 1% SDV INJ 30 ML VIAL As Ordered ONE; +TRIAMCINOLONE ACETONIDE SUSP 40 MG/ML VIAL (J3301) As Ordered ONE; +diazePAM 5 MG TAB As Ordered ONE; +oxyCODONE 5MG TAB As Ordered ONE
--- NOTE | 2019-06-13 11:31 | REP ---
C-ARM VIEWS OF LOWER LUMBAR SPINE: CLINICAL HISTORY: Pain. Two C-arm views of the lower lumbar spine are performed during bilateral facet injection by Dr. Salas. [place] are seen along the lower lumbar facet joints. 32.5 seconds of fluoroscopy time utilized. Electronically Signed by Alex Haque MD 06/13/2019 05:40 P
--- NOTE | 2019-06-21 03:22 | ECWPNPC ---
PATIENT NAME: KIRK WILSON : 1985 GENDER: MALE VISIT DATE: 06/13/2019 DISCHARGE DATE: 06/13/19 1139 VISIT LOCKED DATE TIME: PHYSICIAN: KADE REYES MD RESOURCE: KADE REYES MD REASON FOR APPOINTMENT 1. LUMBAR THERAPUTIC FACET BLOCK HISTORY OF PRESENT ILLNESS HISTORY OF PRESENT ILLNESS: PAIN THE PATIENT DESCRIBES THE PAIN... FALL RISK SCREENING: SCREENING :NO FALLS REPORTED IN THE LAST YEAR CURRENT MEDICATIONS NOT-TAKING PERCOCET 5-325 MG TABLET 1 TABLET NEEDED ORALLY EVERY 4-6 HOURS, NOTES: NONE RECENT NOT-TAKING CLINDAMYCIN HCL 75 MG CAPSULE DIRECTED ORALLY NOT-TAKING FLEXERIL 10 MG TABLET 1 TABLET ORALLY THREE TIMES A DAY NOT-TAKING NAPROXEN 500 MG TABLET 1 TABLET WITH FOOD OR MILK NEEDED ORALLY EVERY 12 HRS NOT-TAKING NABUMETONE 750 MG TABLET 1 TABLET ORALLY TWICE A DAY NOT-TAKING GABAPENTIN 100 MG CAPSULE 1 CAPSULE ORALLY THREE X DAILY X 3 DAYS NOT-TAKING GABAPENTIN 300 MG CAPSULE 1 CAPSULE ORALLY TID, NOTES: NONE RECENT MEDICATION LIST REVIEWED AND RECONCILED WITH THE PATIENT PAST MEDICAL HISTORY KIDNEY STONE BACK PAIN GALLBLADDER DISEASE KIDNEY FAILURE LEFT FOOT FRACTURE ALLERGIES N.K.D.A. SURGICAL HISTORY SURGICAL REPAIR OF FOOT FX-LEFT [address] [facility]- [address]. RUGGIERO- GALLBLADDER REMOVED 06/09/17 FAMILY HISTORY FATHER: UNKNOWN 60 YRS MOTHER: ALIVE 65 YRS, MS, BREAST CANCER SIBLINGS: ALIVE SON(S): ALIVE 9 YRS DAUGHTER(S): ALIVE 8 YRS PATERNAL GRAND FATHER: UNKNOWN PATERNAL GRAND MOTHER: UNKNOWN MATERNAL GRAND FATHER: 70 YRS, DIAGNOSED WITH OTHER MALIGNANT NEOPLASM OF UNSPECIFIED SITE MATERNAL GRAND MOTHER: 90 YRS, OTHER MALIGNANT NEOPLASM OF UNSPECIFIED SITE 1 BROTHER(S) , 3 SISTER(S) . 1 SON(S) , 1 DAUGHTER(S) - HEALTHY. ALL HALF [id number] - 1 SISTER AGE 30 WITH RECURRENT ? CERVICAL CANCER. HYSTERECTOMY1 SISITER HEART DEFECT AT , RESLOVED WITH SX.3BROTHERS- NO KNOWN MEDICAL ISSUESFATHER- ALIVE, AGE 60,UNKOWN HX- BI-KNEE REPLACEMENTS, CT SX BOTH WRIST, OBESITY. MOTHER- ALIVE AGE 65- MS, BREAST CANCER X2. PANCREAS, GALL BLADDER REMOVED. 1 SON AGE 9- NO KNOWN MEDICAL ISSUES- (LIVES WITH SELF-FATHER)1 DAUGHTER AGE8- MULTIPLE MEDICAL ISSUES, INTESTINAL AND BOWELS ISSUES- INCONT OF BLADDER AND BOWELS, LIVES WITH MOTHER. TUBES IN EARS. PATERNAL GRANDPARENTS- UNKNOWN FATHER WAS ADOPTEDMATERNAL GRANDPARENTS- GRANDFATHER AGE 70- DECEASEAD- LUNG CANCERMATERNAL GRANDMOTHER AGE 90- - PANCREATIC CANCER. SOCIAL HISTORY GENERAL: TOBACCO USE ARE YOU A:CURRENT SMOKER ARE YOU INTERESTED IN QUITTING?THINKING ABOUT QUITTING PREVIOUS QUIT ATTEMPTS?YES, MORE THAN 6 MONTHS AGO. COUNSELED THE PATIENT ON SMOKING CESSATION, EDUCATION [id number]/19/2020 HOW MANY CIGARETTES A DAY DO YOU SMOKE?11-20 HOW SOON AFTER YOU WAKE UP DO YOU SMOKE YOUR FIRST CIGARETTE?31-60 MIN HOW OFTEN DO YOU SMOKE CIGARETTES?EVERY DAY PATIENT COUNSELED ON THE DANGERS OF TOBACCO USE AND URGED TO QUIT:06/13/2019 HIV / HEP-C SCREENING HIV TEST OFFERED TO PATIENT:YES DATE OFFERED:06/15/2017 TEST ACCEPTED:NO REASON:PATIENT DECLINED BROCHURE PROVIDED TO PATIENTYES OTHERS AT HOME: GIRLFRIEND, HIS SON,. HOUSING: RENTS HOUSE. EDUCATION LEVEL OF EDUCATION: COMPLETED 9TH GRADE DIET: REGULAR. LANGUAGE SPANISH. DOMESTIC VIOLENCE DO YOU FEEL SAFE IN YOUR ENVIRONMENT?YES NEW PATIENT PAIN DIARY TODAY'S VISIT 06/13/2019 PATIENT DESCRIBES PAIN :ACHING, BURNING, HAVE IT ALL THE TIME, SHARP, STABBING, SORE, SHOOTING FROM 0-10, WHAT LEVEL IS YOUR PAIN TODAY?7 PRECIPITATING FACTORS STANDING, SITTING, BENDING MOVEMENTS, PROLONGED PERIOD ON FEET ALLEVIATING FACTORS NOTHING AT THIS TIME, MEDICATIONS WILL DULL PAIN, NOTHING RESOLVES PAIN IMPACT ON FUNCTION DOES NOT DAMPER DAILY ACTIVITY, PT CONTINUES TO TOLERATE INCREASED PAIN RECREATIONAL DRUG USE [facility]. EXERCISE: NO REGULAR EXERCISE. LEARNING BARRIERS / SPECIAL NEEDS BARRIERS TO LEARNING?NO HEARING IMPAIRED?NO VISION IMPAIRED?NO COGNITIVELY IMPAIRED?NO READINESS TO LEARN?YES LEARNING PREFERENCES?NO LEARNING CAPABILITIES PRESENT?YES EMOTIONAL BARRIERS?NO SPECIAL DEVICES?NO ROLLER PNEUMATIC NEEDED?NO PAIN CLINIC PFS, CLERGY, PUBLIC HEALTH REFERRALS HAS THE PATIENT BEEN EDUCATED REGARDING HIS/HER PLAN OF CARE?YES HAS THE PATIENT BEEN EDUCATED REGARDING PAIN, THE RISK FOR PAIN, THE IMPORTANCE OF EFFECTIVE PAIN MANAGEMENT, AND THE PAIN ASSESSMENT PROCESS?YES LATEX QUESTIONNAIRE LATEX ALLERGY : HAVE YOU EVER DEVELOPED ANY TYPE OF REACTION AFTER HANDLING LATEX PRODUCTS SUCH RUBBER GLOVES, CONDOMS, DIAPHRAGMS, BALLOONS, SOCKS, OR UNDERWEAR?NO LATEX ALLERGY : HAVE YOU EVER DEVELOPED ANY TYPE OF REACTION DURING OR AFTER DENTAL APPOINTMENT, VAGINAL/RECTAL EXAMINATION, SURGICAL PROCEDURE, OR ANY OTHER EXPOSURE?NO LATEX RISK : HAVE YOU EVER HAD ANY DIFFICULTY BREATHING OR HIVES AFTER EATING OR HANDLING ANY FRUITS, OR VEGETABLES; SUCH KIWI, BANANAS, STONE FRUITS, OR CHESTNUTSNO LATEX RISK : DO YOU HAVE A PREVIOUS PERSONAL HISTORY OF MORE THAN NINE SURGERIES, SPINA BIFIDA, OR REPEATED CATHERIZATIONS? NO LATEX RISK : ARE YOU FREQUENTLY EXPOSED TO LATEX PRODUCTS IN YOUR OCCUPATION?NO DATE ASKED : 06/13/2019 CAFFEINE CAFFEINE USE?YES 2-3 ENERGY DRINKS DAILY, 1-2 COFFEE DAILY, 2LITER SODA NIGHTLY ADVANCE DIRECTIVE ADVANCE DIRECTIVE DISCUSSED WITH PATIENT:YES 06/13/2019 PT. DOES NOT HAVE ANY ADVANCED DIRECTIVES AND HE DECLINES INFORMATION ON HCP AT THIS TIME. AD [place] NO FAITH BELIEFS THAT WOULD IMPACT HEALTH CARE. MARITAL STATUS: SINGLE. 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 SEXUAL HX HAD SEX IN THE LAST 12 MONTHS (VAGINAL, ORAL, OR ANAL)?YES WITHWOMEN ONLY PREVENTION STRATEGIES DISCUSSED:OTHER USE PROTECTION?NO HAVE YOU EVER HAD AN STD?NO 2019-04-12 REVIEWED WITH PATIENT DS. HOSPITALIZATION/MAJOR DIAGNOSTIC PROCEDURE [facility] IN [place]- KIDNEY FAILURE 2010- 1WEEK REVIEW OF SYSTEMS REVIEWED BY: PROVIDER: . CONSTITUTIONAL: ANY CHANGE IN YOUR MEDICAL CONDITION? NO . CHILLS NO . FEVER NO . INFECTION: DO YOU HAVE NEW INFECTIONS? NO . DO YOU HAVE HISTORY OF MRSA? NO . MUSCULOSKELETAL: ANY NEW PATTERNS OF PAIN OR NUMBNESS? NO . GASTROENTEROLOGY: ANY NEW CHANGE IN BOWEL CONTROL? NO . GENITOURINARY: ANY NEW CHANGE IN BLADDER CONTROL? NO . IS THERE A CHANCE YOU COULD BE ? NO . HEMATOLOGY/LYMPH: DO YOU TAKE ANY BLOOD THINNERS? (FOR EXAMPLE- COUMADIN, PLAVIX, AGGRENOX, PLATEL, PRADAXA, OR XARELTO) NO . WHEN WAS YOUR LAST DOSE? DATE: TIME: . NEUROLOGY: HAVE YOU FALLEN IN THE PAST 12 MONTHS? NO . ANY NEW EXTREMITY NUMBNESS OR WEAKNESS? NO . CARDIOLOGY: DO YOU HAVE A PACEMAKER OR DEFIBRILLATOR? NO . RESPIRATORY: HAVE YOU BEEN SICK IN THE PAST WEEK? NO . FEVER NO . FLU LIKE SYMPTOMS? NO . COUGH NO . INTEGUMENTARY: DO YOU HAVE ANY RASHES OR OPEN SORES? NO . ALLERGIC/IMMUNO: ARE YOU ALLERGIC TO IV DYE? NO . ANY NEW ALLERGIES? NO . PSYCHIATRIC: DO YOU HAVE THOUGHTS OF HURTING YOURSELF OR SOMEONE ELSE? NO . ARE YOU ABUSED, NEGLECTED, OR IN AN UNSAFE ENVIRONMENT? NO . ENDOCRINOLOGY: ARE YOU DIABETIC? NO . OTHER: DO YOU NEED ANY PRESCRIPTIONS? NO . IF YES, PLEASE LIST: ____ . ANY NEW PROBLEMS WITH YOUR MEDICATIONS? NO . WHEN DID YOU LAST EAT? 06/11 2300 . WHEN DID YOU LAST DRINK? 06/12 0800 . WHAT DID YOU LAST DRINK? SIP OF WATER . NAME OF PERSON DRIVING YOU HOME? BHANU ROE . DO YOU HAVE ANY OTHER QUESTIONS OR CONCERNS NO . VITAL SIGNS WT 249.0 LBS, HT 71 IN, BMI 34.72 INDEX, BP 131/76 MM HG, HR 77 /MIN, RR 18 /MIN, TEMP 97.7 F, OXYGEN SAT % 97%, SAFE IN ENV? (Y/N) Y, NA INITIALS AW 0938, REVIEWED BY: AD. ASSESSMENTS LUMBAR SPONDYLOSIS - M47.816 (PRIMARY) TREATMENT LUMBAR SPONDYLOSIS [facility] FACET BLOCK (PAIN)[id number] PROCEDURES PN LUMBAR FACET BLOCK THERAPEUTIC PRE PROCEDURE DIAGNOSIS LUMBAR SPONDYLOSIS POST PROCEDURE DIAGNOSIS LUMBAR SPONDYLOSIS PROCEDURE BILATERAL L3-L4 AND L4-L5 LUMBAR FACET THERAPEUTIC BLOCK SURGEON DR. KADE REYES CARDIAC CATH LAB RADIOLOGY TECHNOLOGIST NONE ANESTHESIA LOCAL PRE PROCEDURE NOTE THE PATIENT HAS A HISTORY OF CHRONIC LOW BACK PAIN. I EVALUATED THE PATIENT AND REVIEWED THE CHART. I WENT OVER THE RISKS, ALTERNATIVES, AND BENEFITS ASSOCIATED WITH THIS PROCEDURE. THE PATIENT WOULD LIKE TO PROCEED AND GIVES CONSENT TO PERFORM THE PROCEDURE. THE PATIENT DENIES UNEXPLAINABLE WEIGHT LOSS, FEVER, CHILLS, OR NEW CHANGES IN URINARY OR BOWEL CONTROL DESCRIPTION OF PROCEDURE THE PATIENT WAS BROUGHT TO THE PROCEDURE ROOM AND PLACED IN THE PRONE POSITION. THE LUMBOSACRAL AREA WAS CLEANED WITH CHLORAPREP SOLUTION AND DRAPED ASEPTICALLY. THE PROCEDURE WAS DONE UNDER STERILE CONDITIONS. I CHECKED LATERALITY AND THE LEVEL WHERE THE PROCEDURE WAS GOING TO BE PERFORMED WITH THE PATIENT AND THE SUPPORTING STAFF AT THE MOMENT OF THE TIME OUT IN THE PROCEDURE ROOM. UNDER FLUOROSCOPIC GUIDANCE, THE TARGET POINT WAS SELECTED AT THE RIGHT AND LEFT L3-L4 AND RIGHT AND LEFT L4-L5 FACET JOINTS. TARGET POINT WAS SELECTED AFTER LATERAL ROTATION AND TILT OF THE MAGNIFIER OF THE C-ARM. LIDOCAINE 0.5% WAS USED TO NUMB THE SKIN AND THE SUBCUTANEOUS TISSUE BELOW IT. SPINAL NEEDLES, 22-GAUGE, WERE ADVANCED UNDER FLUOROSCOPIC GUIDANCE AND FOLLOWING PATIENT FEEDBACK UNTIL THE TARGETS WERE TOUCHED. THE POSITION OF THE NEEDLES WAS VERIFIED WITH AP AND LATERAL VIEWS. AFTER PROPER POSITION OF THE NEEDLES WAS ACHIEVED, ISOVUE-M DYE 30% 0.1 ML WAS INJECTED SHOWING ADEQUATE SPREAD OF THE DYE. THEN A SOLUTION OF 1.9 ML OF BUPIVACAINE 0.125% OF KENALOG 10 MG WAS INJECTED AT EACH SITE. THERE WAS NO EVIDENCE OF BLOOD, PARESTHESIA OR CEREBROSPINAL FLUID DURING THE PROCEDURE. THE PATIENT WAS SENT TO THE RECOVERY ROOM. THE PATIENT WAS MOVING THE EXTREMITIES AND DOING WELL. THERE WAS NO COMPLICATION DURING THE PROCEDURE. FLUOROSCOPY TIME WAS 32 SECONDS POST PROCEDURE NOTE THE PATIENT WILL BE SEEN IN A FOLLOW UP IN THE NEXT FEW WEEKS. I AM LOOKING FOR LONG LASTING PAIN RELIEF FOR THE PATIENT WITH THIS INTERVENTION. INSTRUCTIONS WERE GIVEN, QUESTIONS WERE ANSWERED, AND THE PATIENT EXPRESSED UNDERSTANDING AND AGREES WITH THE PLAN. I, JULIA JOHNSON, DOCUMENTED THE ABOVE INFORMATION ACTING A SCRIBE FOR DR. REYES. I HAVE REVIEWED THE ABOVE DOCUMENT, WRITTEN BY JULIA JOHNSON SCRIBElizabeth AND I VERIFY THAT IT IS ACCURATE. PROCEDURE CODES [id number] INJ PARAVERT F JNT L/S 1 LEV, MODIFIERS: 50 [id number] INJ PARAVERT F JNT L/S 2 LEV, MODIFIERS: 50 [id number] RADXPS IN END [id number] PXD DISPOSITION & COMMUNICATION FOLLOW UP 3 WEEKS ELECTRONICALLY SIGNED BY KADE REYES MD, MD ON 06/20/2019 AT 01:18 PM EDT DISCLAIMER : THIS IS A VISIT SUMMARY EXTRACTED FROM THE [email or web address] CHART. IT IS NOT A COPY OF THE [email or web address] PROGRESS NOTE. MTDD
== END ==
LOC: M PAIN 09:15
PROVIDERS: ATTEND Anesthesiology
DX: M47.816 Spondylosis without myelopathy or radiculopathy, lumbar region (principal)
CPT/HCPCS: 64493; 64494; J3301; Q9967

== ENCOUNTER 2021-03-15 17:45 | Emergency (ER) | payer BC ==
[~2021-03-15] VITALS: Ht 177.8 cm; Wt 102.3 kg
[~2021-03-15 17:45] MED LIST changes: -BUPIVACAINE HCL 0.25% 30 ML VIAL As Ordered ONE; +CYCL-707 PO; -CYCL10TA PO; -ISOVUE-M 300 61% 15ML VIAL (Q9967) As Ordered ONE; -LIDOCAINE 1% SDV INJ 30 ML VIAL As Ordered ONE; -TRIAMCINOLONE ACETONIDE SUSP 40 MG/ML VIAL (J3301) As Ordered ONE; -diazePAM 5 MG TAB As Ordered ONE; -oxyCODONE 5MG TAB As Ordered ONE
[2021-03-15 17:52] VITALS: BP 161/97
== END 2021-03-16 02:53 | disposition left against medical advice (07) ==
LOC: M ED 17:45
DX: Z53.21 Procedure and treatment not carried out due to patient leaving prior to being seen by health care provider (principal)